=== PATIENT | male | born 1970 | race Two or more races ===

== ENCOUNTER 2022-03-07 16:02 | Emergency (ER) | payer OTHER ==
[~2022-03-07] VITALS: Ht 175.3 cm; Wt 95.0 kg
[2022-03-07] MEDS ORDERED: AMOX500T3 PO ×2 (17:29→18:17)
[2022-03-07] MEDS ORDERED: MOME1SPR2 ×2 (17:29→18:17)
[2022-03-07 17:48] VITALS: BP 115/70
== END 2022-03-07 17:50 | disposition home or self-care (01) ==
LOC: ER 16:02
DX: J01.20 Acute ethmoidal sinusitis, unspecified (principal); I10 Essential (primary) hypertension; E11.9 Type 2 diabetes mellitus without complications
CPT/HCPCS: 70450

== ENCOUNTER 2022-11-01 11:14 | Emergency (ER) | payer MEDICAID, OTHER ==
[~2022-11-01] VITALS: Ht 175.3 cm; Wt 90.9 kg
[2022-11-01 11:14] VITALS: BP 130/73; RESP 18; O2SAT 97
[~2022-11-01 11:14] MED LIST: AMOX500T3 PO; MOME1SPR3
[2022-11-01 11:32] VITALS: PULSE 88
== END 2022-11-01 13:43 | disposition left against medical advice (07) ==
LOC: ER 11:14
DX: R05.9 Cough, unspecified (principal); R07.89 Other chest pain; R06.02 Shortness of breath; Z53.21 Procedure and treatment not carried out due to patient leaving prior to being seen by health care provider
CPT/HCPCS: 93005

== ENCOUNTER 2022-12-26 14:09 | Emergency (ER) | payer OTHER, MEDICAID ==
[~2022-12-26] VITALS: Ht 175.3 cm; Wt 86.6 kg
[2022-12-26 14:20] VITALS: BP 101/62; RESP 18; O2SAT 100
[2022-12-26 14:26] VITALS: PULSE 125
[2022-12-26] MEDS ORDERED: ACETAMINOPHEN 500 MG TAB PO ONE (14:30)
[2022-12-26] MEDS ORDERED: ONDANSETRON ODT 4 MG TAB PO ONE (14:45)
[2022-12-26 15:17] LABS: Basophils # (auto) 0 10 ^3/uL (0-0.2); Basophils % (auto) 0.3 % (0.0-2.0); Eosinophils # (auto) 0 10 ^3/uL (0-0.8); Hematocrit 46.4 % (41.0-53.0); Red Cell Distribution Width 13.8 % (11.8-14.3)
[2022-12-26 15:19] LABS: Hemoglobin 15.9 g/dL (13.5-17.5); Lymphocytes # (auto) 0.7 10 ^3/uL (0.4-5.4); Lymphocytes % (auto) 7.9 % (10.0-50.0); Mean Corpuscular Hemoglobin 26.8 pg (28.0-32.0); Mean Corpuscular Hgb Conc. 34.3 g/dL (32.0-36.0); Mean Corpuscular Volume 78.2 fL (80.0-100.0); Monocytes % (auto) 11.6 % (0.0-12.0); Neutrophils # (auto) 7.3 10 ^3/uL (1.6-8.6); Neutrophils % (auto) 80.2 % (37.0-80.0); Nucleated Red Blood Cells % 0.3 %; Red Blood Cells 5.94 10^6/uL (4.5-5.90)
[2022-12-26 15:27] LABS: COVID19 ANTIGEN SOFIA FIA NEGATIVE (NEGATIVE); Rapid Influenza A Negative (Negative); Rapid Influenza B Negative (Negative)
[2022-12-26 15:36] LABS: Alanine Aminotransferase 16 U/L (7-40); Albumin 4.3 g/dL (3.2-4.8); Alkaline Phosphatase 116 U/L (46-116); Anion Gap 7 (5-15); Aspartate Aminotransferase 18 U/L (13-40); BUN/Creatinine Ratio 16.2 (10.0-20.0); Blood Urea Nitrogen 16 mg/dL (9-23); Calcium 8.9 mg/dL (8.7-10.4); Carbon Dioxide 26 mmol/L (20-30); Chloride 98 mmol/L (98-107); Glucose 176 mg/dL (74-106); Lipase 40 U/L (12-53); Potassium 3.7 mmol/L (3.5-5.1); Sodium 131 mmol/L (136-145)
[2022-12-26 15:37] LABS: Bilirubin, Total 0.6 mg/dL (0.2-1.0); Total Protein 7.6 g/dL (5.7-8.2)
[2022-12-26 15:49] VITALS: TEMP 100.8
[2022-12-26] MEDS ORDERED: SODIUM CHLORIDE 0.9% 1,000 ML IV ONE (16:15)
[2022-12-27] MEDS ORDERED: DIPH2.5T73 PO (11:05)
== END 2022-12-26 18:16 | disposition left against medical advice (07) ==
LOC: ER 14:09
DX: B34.8 Other viral infections of unspecified site (principal); E11.9 Type 2 diabetes mellitus without complications; I10 Essential (primary) hypertension; Z20.822 Contact with and (suspected) exposure to COVID-19
CPT/HCPCS: 36415; 71045; 80053; 82962; 83690; 83880; 84484; 85025; 87426; 87804; 93005; 99285; Q0162

== ENCOUNTER 2022-12-27 09:29 | Emergency (ER) | payer OTHER, MEDICAID ==
[~2022-12-27] VITALS: Ht 175.3 cm; Wt 92.0 kg
[2022-12-27 09:55] LABS: Basophils # (auto) 0 10 ^3/uL (0-0.2); Basophils % (auto) 0.4 % (0.0-2.0); Eosinophils # (auto) 0 10 ^3/uL (0-0.8); Eosinophils % (auto) 0.1 % (0.0-7.0); Hematocrit 47.8 % (41.0-53.0); Hemoglobin 16.1 g/dL (13.5-17.5); Lymphocytes # (auto) 1.2 10 ^3/uL (0.4-5.4); Lymphocytes % (auto) 17.5 % (10.0-50.0); Mean Corpuscular Hemoglobin 26.5 pg (28.0-32.0); Mean Corpuscular Hgb Conc. 33.7 g/dL (32.0-36.0); Mean Corpuscular Volume 78.8 fL (80.0-100.0); Monocytes % (auto) 15.2 % (0.0-12.0); Neutrophils # (auto) 4.6 10 ^3/uL (1.6-8.6); Neutrophils % (auto) 66.8 % (37.0-80.0); Nucleated Red Blood Cells % 0.2 %; Red Blood Cells 6.07 10^6/uL (4.5-5.90); Red Cell Distribution Width 13.7 % (11.8-14.3); White Blood Cell 6.9 10^3/uL (4.4-10.8)
[2022-12-27 10:14] LABS: Alanine Aminotransferase 23 U/L (7-40); Alkaline Phosphatase 104 U/L (46-116); Anion Gap 5 (5-15); Aspartate Aminotransferase 19 U/L (13-40); Bilirubin, Total 0.5 mg/dL (0.2-1.0); Blood Urea Nitrogen 22 mg/dL (9-23); Calcium 9.2 mg/dL (8.5-10.1); Carbon Dioxide 30 mmol/L (20-30); Chloride 99 mmol/L (98-107); Glucose 191 mg/dL (74-106); Potassium 4.2 mmol/L (3.5-5.1); Sodium 134 mmol/L (136-145)
[2022-12-27 10:45] LABS: INR 1.14 (0.9-1.15); Partial Thromboplastin Time 33.7 SEC (24.5-34.5); Prothrombin Time 11.9 sec (9.3-11.8)
[2022-12-27] MEDS ORDERED: DIPH2.5T73 PO (11:05)
[2022-12-27 11:24] VITALS: BP 110/76; PULSE 97; RESP 16; TEMP 98.9; O2SAT 98
== END 2022-12-27 11:26 | disposition home or self-care (01) ==
LOC: ER 09:29
DX: A05.9 Bacterial foodborne intoxication, unspecified (principal); R19.7 Diarrhea, unspecified; I10 Essential (primary) hypertension; E11.9 Type 2 diabetes mellitus without complications; Z98.890 Other specified postprocedural states; Z79.899 Other long term (current) drug therapy
CPT/HCPCS: 36415; 71045; 74176; 80053; 84484; 85025; 85610; 85730; 93005

== ENCOUNTER 2023-02-26 14:26 | Emergency (ER) | payer OTHER, MEDICAID ==
[~2023-02-26] VITALS: Ht 175.3 cm; Wt 87.1 kg
[~2023-02-26 14:26] MED LIST changes: +DIPH2.5T73 PO
[2023-02-26] MEDS ORDERED: HYDROcodone-ACET 5/325MG TAB PO ONE (14:45)
[2023-02-26 15:21] LABS: Lymphocytes # (auto) 1.8 10 ^3/uL (0.4-5.4); Mean Corpuscular Hemoglobin 26.3 pg (28.0-32.0); Monocytes # (auto) 0.5 10 ^3/uL (0-1.3)
[2023-02-26 15:23] LABS: Basophils # (auto) 0 10 ^3/uL (0-0.2); Basophils % (auto) 0.5 % (0.0-2.0); Eosinophils # (auto) 0 10 ^3/uL (0-0.8); Eosinophils % (auto) 0.6 % (0.0-7.0); Hematocrit 43.3 % (41.0-53.0); Hemoglobin 14.2 g/dL (13.5-17.5); Lymphocytes % (auto) 21.9 % (10.0-50.0); Mean Corpuscular Hgb Conc. 32.9 g/dL (32.0-36.0); Mean Corpuscular Volume 79.9 fL (80.0-100.0); Monocytes % (auto) 6.3 % (0.0-12.0); Neutrophils # (auto) 5.9 10 ^3/uL (1.6-8.6); Neutrophils % (auto) 70.7 % (37.0-80.0); Red Blood Cells 5.42 10^6/uL (4.5-5.90); Red Cell Distribution Width 13.3 % (11.8-14.3); White Blood Cell 8.3 10^3/uL (4.4-10.8)
[2023-02-26 15:38] LABS: Alanine Aminotransferase 21 U/L (7-40); Albumin 3.9 g/dL (3.2-4.8); Alkaline Phosphatase 139 U/L (46-116); Anion Gap 5 (5-15); Aspartate Aminotransferase 14 U/L (13-40); Blood Urea Nitrogen 18 mg/dL (9-23); Calcium 8.9 mg/dL (8.7-10.4); Carbon Dioxide 28 mmol/L (20-30); Chloride 101 mmol/L (98-107); Glucose 399 mg/dL (74-106); Lipase 36 U/L (12-53); Potassium 4.3 mmol/L (3.5-5.1); Sodium 134 mmol/L (136-145)
[2023-02-26 15:39] LABS: Bilirubin, Total 0.3 mg/dL (0.2-1.0)
[2023-02-26] MEDS ORDERED: INSULIN LISPRO (HUMAN) 100 UNITS/ML ML SC ONE ×2 (16:00→18:15)
[2023-02-26] MEDS: SODIUM CHLORIDE 0.9% 1,000 ML IV ONE ×2 (16:11→16:27)
[2023-02-26 16:44] LABS: Urine Epithelial Cast None Seen /hpf (<5)
[2023-02-26 16:56] LABS: Urine Bacteria NONE SEEN /hpf (None Seen); Urine Blood Negative /uL (Negative); Urine Clarity Clear (Clear); Urine Color Colorless (Yellow); Urine Mucus FEW (None Seen); Urine Protein, UAD Negative (Negative); Urine Specific Gravity 1.035 (1.001-1.035); Urine Urobilinogen Normal (Negative); Urine WBC <1 /hpf (0 - 3); Urine pH 5.5 (5.0-8.0)
[2023-02-26] MEDS ORDERED: CEPH500C PO (18:46)
[2023-02-26] MEDS ORDERED: ACE3T PO (18:46)
[2023-02-26 20:04] VITALS: BP 134/84; PULSE 98; RESP 19; TEMP 98; O2SAT 98
== END 2023-02-26 20:06 | disposition home or self-care (01) ==
LOC: ER 14:26
DX: E11.65 Type 2 diabetes mellitus with hyperglycemia (principal); L08.89 Other specified local infections of the skin and subcutaneous tissue; I10 Essential (primary) hypertension
CPT/HCPCS: 36415; 71045; 80053; 81001; 82962; 83605; 83690; 83880; 85025; 93005; 96360; 96361; 96372; 99285; J1815; J7030

== ENCOUNTER 2023-07-04 15:27 | Emergency (ER) | payer OTHER, MEDICAID ==
[~2023-07-04] VITALS: Ht 175.3 cm; Wt 85.3 kg
[2023-07-04 15:27] VITALS: BP 120/74; PULSE 96; RESP 16; O2SAT 98
[~2023-07-04 15:27] MED LIST changes: +ACE3T PO; +CEPH500C PO
== END 2023-07-04 19:35 | disposition left against medical advice (07) ==
LOC: ER 15:27
DX: R19.7 Diarrhea, unspecified (principal); Z53.21 Procedure and treatment not carried out due to patient leaving prior to being seen by health care provider

== ENCOUNTER 2023-09-14 04:56 | Inpatient (IN) | payer OTHER, MEDICAID ==
[~2023-09-14] VITALS: Ht 175.3 cm; Wt 90.5 kg
[2023-09-14 07:32] LABS: Basophils # (auto) 0 10 ^3/uL (0-0.2); Basophils % (auto) 0.4 % (0.0-2.0); Eosinophils # (auto) 0 10 ^3/uL (0-0.8); Eosinophils % (auto) 0.4 % (0.0-7.0); Hematocrit 44.8 % (41.0-53.0); Hemoglobin 15.1 g/dL (13.5-17.5); Lymphocytes # (auto) 2.1 10 ^3/uL (0.4-5.4); Lymphocytes % (auto) 18.4 % (10.0-50.0); Mean Corpuscular Hgb Conc. 33.7 g/dL (32.0-36.0); Mean Corpuscular Volume 80.1 fL (80.0-100.0); Monocytes # (auto) 0.7 10 ^3/uL (0-1.3); Monocytes % (auto) 6.3 % (0.0-12.0); Neutrophils # (auto) 8.5 10 ^3/uL (1.6-8.6); Neutrophils % (auto) 74.5 % (37.0-80.0); Nucleated Red Blood Cells % 0.1 %; Red Blood Cells 5.59 10^6/uL (4.5-5.90); Red Cell Distribution Width 13.6 % (11.8-14.3); White Blood Cell 11.5 10^3/uL (4.4-10.8)
[2023-09-14 07:39] LABS: Chloride 102 mmol/L (98-107); Potassium 4.1 mmol/L (3.5-5.1); Sodium 135 mmol/L (136-145)
[2023-09-14 07:40] LABS: Anion Gap 8 (5-15); Calcium 9.9 mg/dL (8.7-10.4); Carbon Dioxide 25 mmol/L (20-30)
[2023-09-14 07:45] LABS: Blood Urea Nitrogen 17 mg/dL (9-23); Glucose 197 mg/dL (74-106)
[2023-09-14 08:39] LABS: Urine Bacteria FEW /hpf (None Seen); Urine Blood Negative /uL (Negative); Urine Clarity Clear (Clear); Urine Color Light-Yellow (Yellow); Urine Mucus FEW (None Seen); Urine Protein, UAD Negative (Negative); Urine Specific Gravity 1.031 (1.001-1.035); Urine Urobilinogen Normal (Negative); Urine WBC <1 /hpf (0 - 3)
[2023-09-14] MEDS: ONDANSETRON HCL 4 MG/2 ML VIAL IV ONE (08:48)
[2023-09-14] MEDS: MORPHINE SULFATE 4 MG/ML SYR/VIAL IV ONE (08:48)
[2023-09-14] MEDS ORDERED: ONDANSETRON HCL 4 MG/2 ML VIAL IV PRN (09:45)
[2023-09-14] MEDS ORDERED: NITROGLYCERIN 0.4 MG SL TAB SL PRN (09:45)
[2023-09-14] MEDS: PIPERACILLIN-TAZOB 3.375GM 100 ML IV ONE (10:09)
[2023-09-14] MEDS: SODIUM CHLORIDE 0.9% 1,000 ML IV SCH (10:09)
[2023-09-14] MEDS ORDERED: PIPERACILLIN-TAZOB 3.375GM 100 ML IV SCH (12:00)
[2023-09-14 12:43] VITALS: BP 125/83; PULSE 93; RESP 19; TEMP 98.4; O2SAT 96
[2023-09-14 15:37] VITALS: BP 125/83; PULSE 93; RESP 18; TEMP 98.4; O2SAT 96
[2023-09-14 15:48] VITALS: PULSE 93; RESP 19; O2SAT 96
[2023-09-14 16:35] VITALS: BP 137/80; PULSE 74; RESP 19; TEMP 98.8; O2SAT 98
[2023-09-14] MEDS: PANTOPRAZOLE 40 MG/10 ML VIAL INJ IV ONE (17:08)
[2023-09-14] MEDS: PIPERACILLIN-TAZOB 3.375GM 100 ML IV SCH (17:08)
[2023-09-14] MEDS: BISACODYL 10 MG RECT SUPP PR ONE (17:09)
[2023-09-14 20:00] VITALS: PULSE 98; RESP 18; O2SAT 96
[2023-09-14 21:00] VITALS: BP 115/61; PULSE 77; RESP 18; TEMP 98.9; O2SAT 96
[2023-09-15] VITALS (7 sets, daily range): BP systolic 107–150; BP diastolic 55–86; PULSE 75–93; RESP 18–20; TEMP 97.1–98.9; O2SAT 94–98
[2023-09-15] MEDS: MORPHINE SULFATE INJ 2 MG/ml SYRG IV PRN (04:55)
[2023-09-15] MEDS: BISACODYL 10 MG RECT SUPP PR PRN (04:59)
[2023-09-15 06:41] LABS: Basophils # (auto) 0 10 ^3/uL (0-0.2); Basophils % (auto) 0.7 % (0.0-2.0); Eosinophils # (auto) 0 10 ^3/uL (0-0.8); Eosinophils % (auto) 0.5 % (0.0-7.0); Hematocrit 43.5 % (41.0-53.0); Hemoglobin 14.7 g/dL (13.5-17.5); Lymphocytes # (auto) 1.8 10 ^3/uL (0.4-5.4); Lymphocytes % (auto) 26.6 % (10.0-50.0); Mean Corpuscular Hgb Conc. 33.8 g/dL (32.0-36.0); Mean Corpuscular Volume 79.9 fL (80.0-100.0); Monocytes # (auto) 0.5 10 ^3/uL (0-1.3); Monocytes % (auto) 7.5 % (0.0-12.0); Neutrophils # (auto) 4.3 10 ^3/uL (1.6-8.6); Neutrophils % (auto) 64.7 % (37.0-80.0); Nucleated Red Blood Cells % 0.1 %; Red Blood Cells 5.44 10^6/uL (4.5-5.90); Red Cell Distribution Width 13.9 % (11.8-14.3); White Blood Cell 6.7 10^3/uL (4.4-10.8)
[2023-09-15 06:50] LABS: Alanine Aminotransferase 21 U/L (7-40); Albumin 3.6 g/dL (3.2-4.8); Alkaline Phosphatase 88 U/L (46-116); Anion Gap 5 (5-15); Aspartate Aminotransferase 12 U/L (13-40); BUN/Creatinine Ratio 19.2 (10.0-20.0); Blood Urea Nitrogen 14 mg/dL (9-23); Calcium 8.9 mg/dL (8.7-10.4); Carbon Dioxide 28 mmol/L (20-30); Chloride 104 mmol/L (98-107); Glucose 179 mg/dL (74-106); Potassium 3.9 mmol/L (3.5-5.1); Sodium 137 mmol/L (136-145)
[2023-09-15 06:51] LABS: Bilirubin, Total 0.6 mg/dL (0.2-1.0); Total Protein 6.8 g/dL (5.7-8.2)
[2023-09-15] MEDS: PANTOPRAZOLE 40 MG/10 ML VIAL INJ IV SCH (10:37)
[2023-09-15] MEDS: DOCUSATE SOD 100 MG CAP PO PRN (10:37)
[2023-09-15] MEDS ORDERED: DEXTROSE (50%) 50ML SYRG IV PRN (14:15)
[2023-09-15] MEDS: POLYETHYLENE GLYCOL 17 GM PWDR PO ONE (14:56)
[2023-09-15] MEDS: METOCLOPRAMIDE HCL 5MG/ml INJ 2ml VIAL IV ONE (14:56)
[2023-09-15] MEDS: LACTULOSE 20Gm/30ML SOLN PO SCH (18:21)
[2023-09-15] MEDS: FLEET ENEMA(ADULT) 135 ML PR ONE (18:22)
[2023-09-15] MEDS: ACCU-CHEK COMFORT CURVE STRIP VI SCH (18:22)
[2023-09-15] MEDS: InsuLIN REG 1unit/0.01ml Soln (100units/ml) SC SCH (18:26)
[2023-09-16 05:00] VITALS: BP 112/61; PULSE 85; RESP 20; TEMP 97.7; O2SAT 96
[2023-09-16 08:00] VITALS: PULSE 97; RESP 18; O2SAT 97
[2023-09-16 08:55] VITALS: BP 104/62; PULSE 97; RESP 17; TEMP 98.1; O2SAT 97
[2023-09-16] MEDS ORDERED: DOCU-94 PO (11:07)
[2023-09-16 11:39] VITALS: TEMP 36.7
== END 2023-09-16 12:18 | disposition home or self-care (01) | DRG 392 ==
LOC: ER 04:56 → OVERFLOW 09:44 → WEST WING 11:25
PROVIDERS: ADMIT Nurse Practitioner Family; ATTEND Nurse Practitioner Acute Care
DX: K59.00 Constipation, unspecified (principal); K40.90 Unilateral inguinal hernia, without obstruction or gangrene, not specified as recurrent; E86.0 Dehydration; E11.40 Type 2 diabetes mellitus with diabetic neuropathy, unspecified; K52.9 Noninfective gastroenteritis and colitis, unspecified; I10 Essential (primary) hypertension; E78.5 Hyperlipidemia, unspecified; E11.21 Type 2 diabetes mellitus with diabetic nephropathy; Z90.49 Acquired absence of other specified parts of digestive tract; Z79.4 Long term (current) use of insulin; Z79.899 Other long term (current) drug therapy
CPT/HCPCS: 36415; 74176; 74250; 80048; 80053; 81001; 82962; 83036; 85025; 96365; 96375; G0378; J1815; J2405; J2470; J2543

== ENCOUNTER 2024-02-20 10:36 | Inpatient (IN) | payer OTHER, MEDICARE ==
[~2024-02-20] VITALS: Ht 172.7 cm; Wt 73.0 kg
[~2024-02-20 10:36] MED LIST changes: +DOCU-94 PO
--- NOTE | 2024-02-20 10:55 | ED.PDOC ---
History of Present Illness HPI Comments 53-year-old male brought by paramedics because of a fall this morning. He was trying to break up a fight between his two dogs when the dogs jumped on. He tried to catch his fall by extending his left arm causing deformity of the left upper arm. He does have bruising of his bilateral knees with no deformity. History of diabetes with blood sugar being 460. Denies chest pain nausea vomiting. Denies any other symptoms other than extremity pain. Chief Complaint: Upper Extremity Time Seen by MD: 10:48 [facility] Reviewed Notes: Nurses Notes, Medications, Allergies Allergies: Coded Allergies: No Known Drug Allergy (Verified Allergy, Unknown, 03/07/22) Home Meds Active Scripts Docusate Sodium (Colace) 100 Mg Cap, 1 CAP PO BID, #30 CAP Prov:MARY SANCHEZ FAMILY SUPPORT SPECIALIST 09/16/23 Acetaminophen W/ Codeine (Tylenol W/Cod #3) 1 Tab Tb, 1 TAB PO Q8HP PRN, #20 TAB Prov:DONNA PURVIS PAC 02/26/23 Cephalexin Monohydrate (Cephalexin) 500 Mg Cap, 1 CAP PO QID for 10 Days, #40 CAP Prov:DONNA PURVIS PAC 02/26/23 Diphenoxylate W/ Atropine (Lomotil) 2.5 Mg Tab, 1 TAB PO QID, #20 TAB Prov:ANASTACIA VENTURA MD 12/27/22 Amoxicillin Trihydrate (Amoxicillin) 500 Mg Tab, 1 TAB PO TID, #30 TAB Prov:SAURAV HICKS FAMILY SUPPORT SPECIALIST 03/07/22 Mometasone Furoate (Nasal) (Mometasone Furoate) 50 Mcg/Act Spr, 50 MCG NA DAILY for 14 Days, #1 SPRAY Prov:SAURAV HICKS FAMILY SUPPORT SPECIALIST 03/07/22 Information Source: Patient, Emergency Med Personnel Mode of Arrival: EMS Severity: Moderate Timing: Hours Duration: Since onset Past Medical History PAST MEDICAL HISTORY: DM, High Lipids Surgical History: Appendectomy Family History Family History: No family hx of HTN, No family hx ofKidney zoila, No family hx of Liver zoila, Family hx of Cancer Social History Smoker: Non-Smoker Alcohol: Denies ETOH Use Drugs: Denies Drug Use Lives In: Home Constitutional: denies: chills, diaphoresis, fatigue, fever, malaise, sweats, weakness, others EENTM: denies: blurred vision, double vision, ear bleeding, ear discharge, ear drainage, ear pain, ear ringing, eye pain, eye redness, hearing loss, mouth pain, mouth swelling, nasal discharge, nose bleeding, nose congestion, nose pain, photophobia, tearing, throat pain, throat swelling, voice changes, others Respiratory: denies: cough, hemoptysis, orthopnea, SOB at rest, shortness of breath, SOB with excertion, stridor, wheezing, others Cardiovascular: denies: chest pain, dizzy spells, diaphoresis, Dyspnea on exertion, edema, irregular heart beat, left arm pain, lightheadedness, palpitations, PND, syncope, others Gastrointestinal: denies: abdomen distended, abdominal pain, blood streaked bowels, constipated, diarrhea, dysphagia, difficulty swallowing, hematemesis, melena, nausea, poor appetite, poor fluid intake, rectal bleeding, rectal pain, vomiting, others Genitourinary: denies: burning, dysuria, flank pain, frequency, hematuria, incontinence, penile discharge, penile sore, pain, testicle pain, testicle swelling, urgency, others Neurological: denies: dizziness, fainting, headache, left sided numbness, left sided weakness, numbness, paresthesia, pre-existing deficit, right sided numbness, right sided weakness, seizure, speech problems, tingling, tremors, weakness, others Musculoskeletal: reports: joint pain; denies: back pain, gout, joint swelling, muscle pain, muscle stiffness, neck pain, others Integumetry: denies: bruises, change in color, change in hair/nails, dryness, laceration, lesions, lumps, rash, wounds, others Allergic/Immunocompromised: denies: Difficulty Healing, Frequent Infections, Hives, Itching, others Hematologic/Lymphatic: denies: anemia, blood clots, easy bleeding, easy bruising, swollen glands, others Endocrine: denies: excessive hunger, excessive sweating, excessive thirst, excessive urination, flushing, intolerance to cold, intolerance to heat, unexplained weight gain, unexplained weight loss, others Psychiatric: denies: anxiety, bipolar disorder, depression, hopeless, panic disorder, schizophrenia, sleepless, suicidal, others Physical Exam General Appearance: Moderate Distress HEENT: Normal ENT Inspection, Pharynx Normal, TMs Normal Neck: Full Range of Motion, Non-Tender, Normal, Normal Inspection Respiratory: Chest Non-Tender, Lungs Clear, No Accessory Muscle Use, No Respiratory Distress, Normal Breath Sounds Cardiovascular: No Edema, No JVD, No Murmur, No Gallop, Normal Peripheral Pulses, Regular Rate/Rhythm Breast Exam: Deferred Gastrointestinal: No Organomegaly, Non Tender, No Pulsatile Mass, Normal Bowel Sounds, Soft Genitalia: Deferred Pelvic: Deferred Rectal: Deferred Extremities: Decreased range of motion (Left upper extremity) Musculoskeletal : Apperance: Normal Neurologic: Alert, brush polisher II-XII nml as Tested, No Motor Deficits, Normal Affect, Normal Mood, No Sensory Deficits Cerebellar Function: Normal Reflexes: Normal Skin: Bruises (Bilateral knee) Peripheral Pulses: 3+ Radial (R), 3+ Radial (L) Lymphatic: No Adenopathy Was a procedure done? Was a procedure done?: No Differential Dx Considerations may include: Fracture Hyperglycemia X-Ray, Labs, Meds, VS Vital Signs Date Time Temp Pulse Resp B/P (MAP) Pulse Ox O2 Delivery O2 Flow Rate FiO2 02/20/24 10:38 97.5 88 20 150/100 (117) 98 Patient alert. Complaining of pain. Blood pressure elevated. Blood sugar elevated. Blood pressure possibly from pain. Establish intravenous access. Was given fluids. Was given morphine. Was given Zofran. Deformity of the left upper extremity with good pulses. Was given insulin. Reviewed his previous visit. Explained to the patient. Continue cardiac monitoring. Time of 1ST Reevaluation: 10:52 Reevaluation 1ST: Unchanged Patient Education/Counseling: Diagnosis, Treatment, Prognosis Family Education/Counseling: No Family Present Departure 1 Departure Time of Disposition: 10:53 Impression: Primary Impression: Humerus fracture Qualified Codes: S42.202A - Unspecified fracture of upper end of left humerus, initial encounter for closed fracture Additional Impression: Uncontrolled diabetes mellitus Qualified Codes: E13.65 - Other specified diabetes mellitus with hyperglycemia Disposition: ADMITTED INPATIENT Admit to: Med Surg Condition: Guarded Critical Care Note Critical Care Time?: Yes (45 min-critical care time only) Stability Stability form required: No Heart Score Heart Score: Heart Score Response (Comments) Value History N/A 0 EKG N/A 0 Age N/A 0 Risk Factors N/A 0 Troponin N/A 0 Total 0 KERLINE ARCHER MD Feb 20, 2024 10:55
--- NOTE | 2024-02-20 11:42 | DVH ---
XY L HUMERUS XRAY INDICATION: fall TECHNICAL DATA: Frontal and lateral views were obtained of the left humerus. COMPARISON: None FINDINGS: There is acute fracture of the proximal humeral head and diaphysis. Soft tissues are normal. IMPRESSION: 1. Acute fracture of the proximal humerus.
[2024-02-20 11:48] LABS: Basophils # (auto) 0.1 10 ^3/uL (0-0.2); Basophils % (auto) 0.7 % (0.0-2.0); Chloride 102 mmol/L (98-107); Eosinophils # (auto) 0.1 10 ^3/uL (0-0.8); Eosinophils % (auto) 0.8 % (0.0-7.0); Mean Corpuscular Volume 79.6 fL (80.0-100.0); Nucleated Red Blood Cells % 0.1 %; Potassium 3.7 mmol/L (3.5-5.1); Sodium 136 mmol/L (136-145)
[2024-02-20 11:49] LABS: Anion Gap 7 (5-15); Calcium 9.8 mg/dL (8.7-10.4); Carbon Dioxide 27 mmol/L (20-31)
[2024-02-20 11:53] LABS: Hematocrit 44.3 % (41.0-53.0); Hemoglobin 15.1 g/dL (13.5-17.5); Lymphocytes # (auto) 2.5 10 ^3/uL (0.4-5.4); Lymphocytes % (auto) 25.5 % (10.0-50.0); Mean Corpuscular Hemoglobin 27.1 pg (28.0-32.0); Monocytes # (auto) 0.6 10 ^3/uL (0-1.3); Monocytes % (auto) 6.1 % (0.0-12.0); Neutrophils # (auto) 6.6 10 ^3/uL (1.6-8.6); Neutrophils % (auto) 66.9 % (37.0-80.0); Platelet Count (auto) 262 10^3/uL (140-450); Red Blood Cells 5.57 10^6/uL (4.5-5.90); Red Cell Distribution Width 13.4 % (11.8-14.3); White Blood Cell 9.9 10^3/uL (4.4-10.8)
[2024-02-20 11:54] LABS: BUN/Creatinine Ratio 20.3 (10.0-20.0); Blood Urea Nitrogen 16 mg/dL (9-23)
[2024-02-20 12:04] LABS: Glucose 358 mg/dL (74-106)
[2024-02-20] MEDS: MORPHINE SULFATE 4 MG/ML SYR/VIAL IV ONE (13:45)
[2024-02-20] MEDS: SODIUM CHLORIDE 0.9% 1,000 ML IV ONE (13:46)
[2024-02-20] MEDS: ONDANSETRON HCL 4 MG/2 ML VIAL IV ONE (13:46)
[2024-02-20 14:34] VITALS: TEMP 98.2
[2024-02-20] MEDS ORDERED: ONDANSETRON HCL 4 MG/2 ML VIAL IV PRN (15:00)
[2024-02-20] MEDS ORDERED: DEXTROSE (50%) 50ML SYRG IV PRN (15:00)
[2024-02-20] MEDS ORDERED: DOCUSATE SOD 100 MG CAP PO PRN (15:00)
[2024-02-20] MEDS ORDERED: MORPHINE SULFATE INJ 2 MG/ml SYRG IV PRN ×2 (15:00→16:45)
[2024-02-20] MEDS ORDERED: ACETAMINOPHEN 325 MG TAB PO PRN (15:00)
[2024-02-20] MEDS: ACCU-CHEK COMFORT CURVE STRIP VI SCH (16:25)
[2024-02-20] MEDS: HYDROcodone-ACET 5/325MG TAB PO PRN (16:25)
[2024-02-20] MEDS: SODIUM CHLORIDE 0.9% 1,000 ML IV SCH (16:25)
[2024-02-20] MEDS: InsuLIN REG 1unit/0.01ml Soln (100units/ml) IV ONE (16:26)
[2024-02-20] MEDS: InsuLIN REG 1unit/0.01ml Soln (100units/ml) SC SCH (16:26)
--- NOTE | 2024-02-20 16:36 | DVHHP2 ---
History of Present Illness Reason for Visit: Humerus fracture, left History of Present Illness The patient is a 53-year-old male with past medical history of diabetes mellitus and hyperlipidemia who presented to [facility] ED evaluation of left shoulder pain. Patient reports he was trying to break up a fight between his 2 dogs when the dog jumped on him and fell extending his left arm causing deformity of the left upper arm. Patient was noted multiple bruises of his bilateral knee with no deformity. Patient was seen and evaluated in the ED, laboratory data shows WBC 9.9, platelets 262, sodium 136, potassium 3.7, BUN 16, creatinine 0.79, GFR 105, glucose 358, blood pressure 118/68, pulse 89, temperature 98.2 F, O2 saturation 97% room air. Left humerus x-ray revealing acute fracture of the proximal humerus. Please see medication orders section in the computer. On my assessment, patient denied chest pain, no headache, no dizziness, abdominal pain, no nausea, no vomiting, no fever, no chills. Patient was admitted for further evaluation and medical management. Past Medical History DM, High Lipids Past Surgical History Appendectomy Family History Reviewed, noncontributory to the management of this case. Past Social History The patient lives at home, denies smoking, alcohol or illicit drugs abuse. Review of Systems Constitutional: No: Fever, Chills, Sweats, Weakness, Malaise, Other Eyes: No: Pain, Vision change, Conjunctivae inflammation, Eyelid inflammation, Other, Redness ENT: No: Ear pain, Ear discharge, Nose pain, Nose discharge, Nose congestion, Mouth pain, Mouth swelling, Throat pain, Throat swelling, Other Respiratory: No: Cough, Dry, Shortness of breath, SOB with excertion, Wheezing, Hemoptysis, Pleuritic Pain, Sputum, Wheezing, Other Cardiovascular: No: Chest Pain, Palpitations, Orthopnea, Paroxysmal Noc. Dyspnea, Edema, Lt Headedness, Other Genitourinary: No Dysuria, No Frequency, No Incontinence, No Hematuria, No Retention, No Other Musculoskeletal: other (Joint pain, left), shoulder pain (Left); No: neck pain, arm pain, back pain, hand pain, leg pain, foot pain Skin: Bruising (Bilateral knee); No: Rash, Lesions, Jaundice, Other Neurological: No: Weakness, Numbness, Incoordination, Change in speech, Confusion, Seizures, Other Allergies: Coded Allergies: No Known Drug Allergy (Verified Allergy, Unknown, 03/07/22) Medications Current Medications Medications Dose Ordered Sig/Erin Route Start Time Stop Time Status Last Admin Dose Admin Diagnostic Test (Pha) 1 strip IQ4HR 02/20/24 16:00 02/20/24 16:25 1 STRIP Insulin Human Regular IQ4HR SC 02/20/24 16:00 02/20/24 16:26 9 UNITS Dextrose 50 ml UD PRN IV 02/20/24 15:00 Sodium Chloride 1,000 ml @ 60 mls/hr [id number] IV 02/20/24 15:00 02/20/24 16:25 60 MLS/HR Acetaminophen/ Hydrocodone Bitart 1 tab Q4HP PRN PO 02/20/24 15:00 02/20/24 16:25 1 TAB Ondansetron HCl 4 mg Q4HP PRN IV 02/20/24 15:00 Docusate Sodium 100 mg BIDPRN PRN PO 02/20/24 15:00 Enoxaparin Sodium 40 mg DAILY SC 02/21/24 10:00 Acetaminophen 650 mg Q6HP PRN PO 02/20/24 15:00 Morphine Sulfate 2 mg Q4HPRN PRN IV 02/20/24 15:00 Exam Vital Signs Vital Signs Date Time Temp Pulse Resp B/P (MAP) Pulse Ox O2 Delivery O2 Flow Rate FiO2 02/20/24 14:34 98.2 89 17 117/68 (84) 96 98.2 General Appearance: Alert, Oriented X3, Cooperative, No acute distress HEENT: Atraumatic, PERRLA, EOMI, Mucous membr. moist/pink Respiratory: Clear to auscultation, Normal air movement Cardiovascular: Regular rate, Normal S1, Normal S2, No murmurs Abdominal: Normal bowel sounds, Soft, No tenderness, No hepatospenomegaly, No masses Extremities: No clubbing, No cyanosis, No edema, Normal pulses, No tenderness/swelling Skin: No rashes, No breakdown, No significant lesion Neuro: Normal gait, Normal speech, Strength at 5/5 X4 ext, Normal tone, Sensation intact, Cranial nerves 3-12 NL, Reflexes 2+ Psych/Mental Status: Mental status NL, Mood NL Labs/Xrays Labs Test 02/20/24 11:05 Range/Units White Blood Count 9.9 4.4-10.8 10^3/uL Red Blood Count 5.57 4.5-5.90 10^6/uL Hemoglobin 15.1 13.5-17.5 g/dL Hematocrit 44.3 41.0-53.0 % Mean Corpuscular Volume 79.6 L 80.0-100.0 fL Mean Corpuscular Hemoglobin 27.1 L 28.0-32.0 pg Mean Corpuscular Hemoglobin Concent 34.0 32.0-36.0 g/dL Red Cell Distribution Width 13.4 11.8-14.3 % Platelet Count 262 140-450 10^3/uL Mean Platelet Volume 9.4 6.9-10.8 fL Neutrophils (%) (Auto) 66.9 37.0-80.0 % Lymphocytes (%) (Auto) 25.5 10.0-50.0 % Monocytes (%) (Auto) 6.1 0.0-12.0 % Eosinophils (%) (Auto) 0.8 0.0-7.0 % Basophils (%) (Auto) 0.7 0.0-2.0 % Neutrophils # (Auto) 6.6 1.6-8.6 10 ^3/uL Lymphocytes # (Auto) 2.5 0.4-5.4 10 ^3/uL Monocytes # (Auto) 0.6 0-1.3 10 ^3/uL Eosinophils # (Auto) 0.1 0-0.8 10 ^3/uL Basophils # (Auto) 0.1 0-0.2 10 ^3/uL Nucleated Red Blood Cells 0.1 % Sodium Level 136 136-145 mmol/L Potassium Level 3.7 3.5-5.1 mmol/L Chloride Level 102 98-107 mmol/L Carbon Dioxide Level 27 20-31 mmol/L Anion Gap 7 5-15 Blood Urea Nitrogen 16 9-23 mg/dL Creatinine 0.79 0.700-1.30 mg/dL Glomerular Filtration Rate Calc 105 >90 mL/min BUN/Creatinine Ratio 20.3 H 10.0-20.0 Serum Glucose 358 H 74-106 mg/dL Calcium Level 9.8 8.7-10.4 mg/dL PATIENT: KASSY ELDER ACCT: [id number] UNIT: [id number] : 1970 LOC: ER ROOM / BED: / AGE / SEX: 53 / M ADM STATUS: REG ER SERVICE 1049 ORDERING PHYSICIAN: KERLINE ARCHER MD PROCEDURE(s): LHUM - L HUMERUS XRAY REASON: fall ORDER NUMBER(s): [id number], ACCESSION NUMBER(s): [id number] XY L HUMERUS XRAY INDICATION: fall TECHNICAL DATA: Frontal and lateral views were obtained of the left humerus. COMPARISON: None FINDINGS: There is acute fracture of the proximal humeral head and diaphysis. Soft tissues are normal. IMPRESSION: 1. Acute fracture of the proximal humerus. Assessment/Plan Assessment/Plan Humerus fracture Uncontrolled diabetes mellitus Unspecified fracture of upper end of left humerus, initial encounter for closed fracture Plan 1. Admit to telemetry unit 2. Breathing treatment 3. Pain control management 4. IV antibiotic management 5. Management of fluids and electrolytes 6. Consultation for orthopedic surgery 7. Diagnostic test left humerus x-ray 8. DVT prophylaxis-on Lovenox 9. Repeat labs CBC, CMP in a.m. 10. Home medication reviewed and reconciled 11. Continue with current medical management 12. Treatment plan discussed with patient and RN. Patient verbalized understanding. Plan discussed with: Patient, Other (RN) My Orders Orders - HUMBERTO NELSON DNP Procedure Category Date Status Time Consistent DIET 02/20/24 Transmitted Carb(Ccho)Diabetes Dinner * Orthopedic Consult CONS 02/20/24 Transmitted 14:50 PTPTT LAB 02/20/24 Logged 14:50 Glucose Blood PHA 02/20/24 In Process (Accu-Chek Comfort 16:00 Insulin R (Human) PHA 02/20/24 In Process (Insulin R) 16:00 Dextrose 50% Syringe PHA 02/20/24 In Process 15:00 Allergies MEHDI 02/20/24 In Process 14:50 Code Status CODE 02/20/24 Transmitted 14:50 Sodium Chloride 0.9% PHA 02/20/24 In Process 15:00 Oxygen Per Hour RT 02/20/24 Transmitted 14:50 Hydrocodone-Acet PHA 02/20/24 In Process 5/325mg Tab (Marland 15:00 Ondansetron Hcl PHA 02/20/24 In Process (Zofran) 15:00 Docusate Sodium PHA 02/20/24 In Process Capsule (Colace 15:00 Enoxaparin Sodium PHA 02/21/24 In Process (Lovenox) 10:00 Complete Blood Count LAB 02/21/24 Verified 04:00 Comprehensive LAB 02/21/24 Verified Metabolic Panel 04:00 Condition: Serious MEHDI 02/20/24 In Process 14:50 Acetaminophen Tablet PHA 02/20/24 In Process (Tylenol Tablet) 15:00 Bedrest With Bathroom MEHDI 02/20/24 In Process Privileg 14:[address]ulf[address] [facility] 02/20/24 In Process Injection 15:00 Sequential [facility] 02/20/24 In Process Compression Device Admit ADMIT 02/20/24 Verified 16:[address] [facility] 02/20/24 Verified Sublingual (Ntrostat 16:45 Morphine [address]ulf[address] [facility] 02/20/24 Verified Injection 16:45 Notify Of Changes [facility] 02/20/24 Verified From Base 16:34 Ovens Supervisor For [facility] 02/20/24 Verified 24 Hours 16:34 Emergency Dysrhythmia [facility] 02/20/24 Verified Protocol 16:34 Rhythm Strips Once [facility] 02/20/24 Verified Every Shift 16:34 Oxygen By Nasal RT 02/20/24 Verified Cannula 16:34 Problem List: (1) Humerus fracture (2) Uncontrolled diabetes mellitus (3) Unspecified fracture of upper end of left humerus, initial encounter for closed fracture Date of Service: Feb 20, 2024 Billing Provider: HUMBERTO NELSON DNP Common Visit Codes: [id number] INP/OBS CARE (HIGH) HUMBERTO NELSON DNP Feb 20, 2024 16:36
[2024-02-20 16:43] VITALS: O2SAT 100
[2024-02-20 16:44] VITALS: BP 122/76; PULSE 93; RESP 16
[2024-02-20] MEDS ORDERED: NITROGLYCERIN 0.4 MG SL TAB SL PRN (16:45)
[2024-02-20] MEDS: cefTRIAXone 1GM/50ML D5W 50 ML IV ONE (19:53)
[2024-02-21] MEDS ORDERED: cefTRIAXone 1GM/50ML D5W 50 ML IV SCH (09:00)
[2024-02-21] MEDS ORDERED: ENOXAPARIN SOD 40 MG/0.4 ML SYRINGE SC SCH (10:00)
== END 2024-02-20 19:53 | disposition left against medical advice (07) | DRG 563 ==
LOC: ER 10:36 → EDBD 10:36 → TELE 16:34
PROVIDERS: ADMIT Nurse Practitioner Family; ATTEND Nurse Practitioner Family
DX: S42.292A Other displaced fracture of upper end of left humerus, initial encounter for closed fracture (principal); M21.922 Unspecified acquired deformity of left upper arm; E11.9 Type 2 diabetes mellitus without complications; Z53.29 Procedure and treatment not carried out because of patient's decision for other reasons; E78.5 Hyperlipidemia, unspecified; S80.01XA Contusion of right knee, initial encounter; S80.02XA Contusion of left knee, initial encounter; Z79.899 Other long term (current) drug therapy; Z79.4 Long term (current) use of insulin; W54.1XXA Struck by dog, initial encounter; Y93.89 Activity, other specified; Y92.89 Other specified places as the place of occurrence of the external cause; Y99.8 Other external cause status
CPT/HCPCS: 36415; 73060; 80048; 85025; 96361; 96374; 96375; 99291; G0378; J1815; J2405

== ENCOUNTER 2024-12-30 04:50 | Emergency (ER) | payer OTHER, MEDICARE ==
[~2024-12-30] VITALS: Ht 175.3 cm; Wt 85.1 kg
--- NOTE | 2024-12-30 06:49 | ED.PDOC ---
Musculoskeletal HPI Comments 54 y/o M, presents to the ED for CC of lower extremity swelling. Patient states, he had a trip and fall on grass x1week ago and has now developed swelling, pain, and erythema to his left lower leg and foot. Patient further reports, to have a wound between his 1st and 2nd digit of hit left foot. Patient denies fever, ch ills, nausea, or vomiting. No other symptoms or modifying factors are present at this time. Chief Complaint: Wound Check Time Seen by MD: 06:30 Primary Care Provider: [facility] Reviewed Notes: Nurses Notes, Medications, Allergies Allergies: Coded Allergies: No Known Drug Allergy (Verified Allergy, Unknown, 03/07/22) Home Meds Active Scripts Docusate Sodium (Colace) 100 Mg Cap, 1 CAP PO BID, #30 CAP Prov:MARY SANCHEZ SOFTWARE INSTALLER 09/16/23 Acetaminophen W/ Codeine (Tylenol W/Cod #3) 1 Tab Tb, 1 TAB PO Q8HP PRN, #20 TAB Prov:DONNA PURVIS PAC 02/26/23 Cephalexin Monohydrate (Cephalexin) 500 Mg Cap, 1 CAP PO QID for 10 Days, #40 CAP Prov:DONNA PURVIS PAC 02/26/23 Diphenoxylate W/ Atropine (Lomotil) 2.5 Mg Tab, 1 TAB PO QID, #20 TAB Prov:ANASTACIA VENTURA MD 12/27/22 Amoxicillin Trihydrate (Amoxicillin) 500 Mg Tab, 1 TAB PO TID, #30 TAB Prov:SAURAV HICKS SOFTWARE INSTALLER 03/07/22 Mometasone Furoate (Nasal) (Mometasone Furoate) 50 Mcg/Act Spr, 50 MCG NA DAILY for 14 Days, #1 SPRAY Prov:SAURAV HICKS SOFTWARE INSTALLER 03/07/22 Information Source: Patient Mode of Arrival: Ambulatory Location: Left Extremity Location: Foot, Leg Timing: Days Prehospital treatment: None Severity: Moderate Able to Move Extremity: Yes Pain: Moderate Mechanism: Other (fall) Circumstances: Fall Onset of Symptoms: After Trauma Symptoms: Swelling, Erythema DVT Risk Factors: NONE Last Tetanus: Unknown Associated signs and symptoms: Leg pain Past Medical History PAST MEDICAL HISTORY: DM, High Lipids Surgical History: Appendectomy Family History Family History: No family hx of HTN, No family hx ofKisilver zoila, No family hx of Liver zoila, Family hx of Cancer Social History Smoker: Non-Smoker Alcohol: Denies ETOH Use Drugs: Denies Drug Use Lives In: Home Constitutional: denies: chills, diaphoresis, fatigue, fever, malaise, sweats, weakness, others EENTM: denies: blurred vision, double vision, ear bleeding, ear discharge, ear drainage, ear pain, ear ringing, eye pain, eye redness, hearing loss, mouth pain, mouth swelling, nasal discharge, nose bleeding, nose congestion, nose pain, photophobia, tearing, throat pain, throat swelling, voice changes, others Respiratory: denies: cough, hemoptysis, orthopnea, SOB at rest, shortness of breath, SOB with excertion, stridor, wheezing, others Cardiovascular: denies: chest pain, dizzy spells, diaphoresis, Dyspnea on exertion, edema, irregular heart beat, left arm pain, lightheadedness, palpitations, PND, syncope, others Gastrointestinal: denies: abdomen distended, abdominal pain, blood streaked bowels, constipated, diarrhea, dysphagia, difficulty swallowing, hematemesis, melena, nausea, poor appetite, poor fluid intake, rectal bleeding, rectal pain, vomiting, others Genitourinary: denies: burning, dysuria, flank pain, frequency, hematuria, incontinence, penile discharge, penile sore, pain, testicle pain, testicle swelling, urgency, others Neurological: denies: dizziness, fainting, headache, left sided numbness, left sided weakness, numbness, paresthesia, pre-existing deficit, right sided numbne ss, right sided weakness, seizure, speech problems, tingling, tremors, weakness, others Musculoskeletal: reports: others (left-leg swelling, left-foot swelling); denies: back pain, gout, joint pain, joint swelling, muscle pain, muscle stiffness, neck pain Integumetry: denies: bruises, change in color, change in hair/nails, dryness, laceration, lesions, lumps, rash, wounds, others Allergic/Immunocompromised: denies: Difficulty Healing, Frequent Infections, Hives, Itching, others Hematologic/Lymphatic: denies: anemia, blood clots, easy bleeding, easy bruising, swollen glands, others Endocrine: denies: excessive hunger, excessive sweating, excessive thirst, excessive urination, flushing, intolerance to cold, intolerance to heat, unexplained weight gain, unexplained weight loss, others Psychiatric: denies: anxiety, bipolar disorder, depression, hopeless, panic di sorder, schizophrenia, sleepless, suicidal, others All Other Systems: Reviewed and Negative Physical Exam General Appearance: No Apparent Distress, Normal HEENT: Normal ENT Inspection, Pharynx Normal Neck: Full Range of Motion, Non-Tender, Normal, Normal Inspection Respiratory: Chest Non-Tender, Lungs Clear, No Accessory Muscle Use, No Respiratory Distress, Normal Breath Sounds Cardiovascular: No Edema, No Murmur, No Gallop, Normal Peripheral Pulses, Regular Rate/Rhythm Breast Exam: Deferred Gastrointestinal: No Organomegaly, Non Tender, No Pulsatile Mass, Normal Bowel Sounds, Soft Genitalia: Deferred Pelvic: Deferred Rectal: Deferred Extremities: No calf tenderness, Normal capillary refill, Normal inspection, Normal range of motion, Non-tender, No pedal edema Musculoskeletal : Location: Left Extremity Location: Foot, Leg Apperance: Swelling, Other (erythema) Neurologic: Alert, instrumentation technologist II-XII nml as Tested, No Motor Deficits, Normal Affect, Normal Mood, No Sensory Deficits Cerebellar Function: Normal Reflexes: Normal Skin: Dry, Normal Color, Warm Lymphatic: No Adenopathy Was a procedure done? Was a procedure done?: No Differential Diagnosis EXT Differential Diagnosis: Cellulitis, Fracture, Sprain X-Ray, Labs, Meds, VS Vital Signs Date Time Temp Pulse Resp B/P (MAP) Pulse Ox O2 Delivery O2 Flow Rate FiO2 12/30/24 07:56 97.9 102 18 136/83 (100) 98 97.9 12/30/24 07:56 102 18 98 Room Air 12/30/24 04:51 98.2 101 18 118/78 95 98.2 Lab Test 12/30/24 07:22 Range/Units White Blood Count 9.4 4.4-10.8 10^3/uL Red Blood Count 5.25 4.5-5.90 10^6/uL Hemoglobin 14.2 13.5-17.5 g/dL Hematocrit 41.3 41.0-53.0 % Mean Corpuscular Volume 78.7 L 80.0-100.0 fL Mean Corpuscular Hemoglobin 27.0 L 28.0-32.0 pg Mean Corpuscular Hemoglobin Concent 34.4 32.0-36.0 g/dL Red Cell Distribution Width 13.6 11.8-14.3 % Platelet Count 291 140-450 10^3/uL Mean Platelet Volume 8.4 6.9-10.8 fL Neutrophils (%) (Auto) 75.0 37.0-80.0 % Lymphocytes (%) (Auto) 16.2 10.0-50.0 % Monocytes (%) (Auto) 7.4 0.0-12.0 % Eosinophils (%) (Auto) 0.6 0.0-7.0 % Basophils (%) (Auto) 0.8 0.0-2.0 % Neutrophils # (Auto) 7.0 1.6-8.6 10 ^3/uL Lymphocytes # (Auto) 1.5 0.4-5.4 10 ^3/uL Monocytes # (Auto) 0.7 0-1.3 10 ^3/uL Eosinophils # (Auto) 0.1 0-0.8 10 ^3/uL Basophils # (Auto) 0.1 0-0.2 10 ^3/uL Nucleated Red Blood Cells 0.0 % Sodium Level 138 136-145 mmol/L Potassium Level 3.8 3.5-5.1 mmol/L Chloride Level 99 98-107 mmol/L Carbon Dioxide Level 30 20-31 mmol/L Anion Gap 9 5-15 Blood Urea Nitrogen 17 9-23 mg/dL Creatinine 0.99 0.700-1.30 mg/dL Glomerular Filtration Rate Calc 89 >90 mL/min BUN/Creatinine Ratio 17.2 10.0-20.0 Serum Glucose 324 H 74-106 mg/dL Calcium Level 9.4 8.7-10.4 mg/dL Current Medications Medications (Trade) Dose Ordered Sig/Erin Route Start Time Stop Time Status Last Admin Trimethoprim/ Sulfamethoxazole (Bactrim Ds Tablet) 1 tab ONCE ONCE PO 12/30/24 08:30 12/30/24 08:31 DC 12/30/24 08:40 Time of 1ST Reevaluation: 07:00 Reevaluation 1ST: Unchanged Patient Education/Counseling: Diagnosis, Treatment Family Education/Counseling: No Family Present Comments [facility] (Level 5) Medical Decision Making: This is a 54-year-old male with diabetes mellitus type 2 presenting with 1 week of progressive left lower extremity swelling, erythema, warmth, and pain involving the left foot, concerning for cellulitis versus deeper diabetic foot infection. His uncontrolled diabetes and hyperglycemia significantly increase the risk of rapid progression, impaired wound healing, and deeper soft-tissue involvement. Differential diagnosis: cellulitis, abscess, septic arthritis, osteomyelitis, necrotizing soft tissue infection, deep space infection, DVT, gout, and diabetic foot ulceration. Workup: CBC: benign, no leukocytosis. BMP: significant for glucose 324, consistent with uncontrolled diabetes and increasing risk of infection progression. Foot X-ray (ordered and independently interpreted by me): shows soft tissue swelling without gas, no bony destruction, no periosteal reaction, and no radiographic evidence of osteomyelitis or retained foreign body. Vitals stable and patient nontoxic; no hypotension, tachycardia, or other red flags for sepsis. ED Course / Management: Given the marked hyperglycemia, I administered subcutaneous insulin for glucose control to reduce infection-related morbidity and prevent worsening diabetic foot complications. He was also given acetaminophen for pain and Bactrim for antibiotic coverage ta rgeting MRSA-risk cellulitis. Erythema borders were marked and monitored; no rapid progression was observed in the ED. The patient remained hemodynamically stable after treatment, tolerated medications, and maintained adequate perfusion and function of the foot. Risk Assessment: This patient has a high-risk condition (cellulitis in an uncontrolled diabetic) and required high-risk managementincluding insulin administration and prescription antibiotics. A deep soft tissue infection, osteomyelitis, and necro tizing infection were considered. Hospital admission for IV antibiotics and glycemic control was discussed; however, based on reassuring imaging, stable exam, lack of systemic illness, and patients ability to obtain close follow-up, we mutually agreed outpatient management was appropriate. Plan: Discharge with oral Bactrim and strict wound care instructions. Emphasized importance of glycemic control and close follow-up within 2448 hours with PCP or wound care. Strict return precautions for fever, spreading erythema, worsening pain, vomiting, inability to bear weight, streaking redness, or any signs of systemic infection. This evaluation involved extensive data review, independent imaging interpretation, and high-risk medication management, meeting criteria for high- complexity medical decision making. Departure 1 Departure Time of Disposition: 09:22 Impression: Primary Impression: Cellulitis Qualified Codes: L03.116 - Cellulitis of left lower limb Additional Impression: Uncontrolled diabetes mellitus Qualified Codes: E11.65 - Type 2 diabetes mellitus with hyperglycemia Disposition: 01 HOME / SELF CARE / HOMELESS Condition: Stable Additional Instructions: You have cellulitis. This is a skin infection. You were prescribed antibiotics. Please take as directed. You can take tylenol and motrin as needed for pain. It is important that you follow up with your regular doctor within one week to ensure you are doing well. If your symptoms worsen or you have any other concerns then please return to the ER. e-Prescriptions Sulfamethoxazole W/Trimethopri (Bactrim Ds Tablet) 1 Tab Tb 1 TAB PO BID for 7 Days, #14 TAB Prov: BRUNILDA MALLORY MD 12/30/24 Discharged With: Self Critical Care Note Critical Care Time?: No Stability Stability form required: No Heart Score Heart Score: Heart Score Response (Comments) Value History N/A 0 EKG N/A 0 Age N/A 0 Risk Factors N/A 0 Troponin N/A 0 Total 0 I personally scribed for BRUNILDA MALLORY MD ([email or web address]) on 12/30/24 at 06:49. Electronically submitted by Lily Claros [email or web address]). BRUNILDA MALLORY MD Dec 30, 2024 06:49
[2024-12-30 07:32] LABS: Hematocrit 41.3 % (41.0-53.0); Hemoglobin 14.2 g/dL (13.5-17.5); Mean Corpuscular Hemoglobin 27.0 pg (28.0-32.0); Mean Corpuscular Volume 78.7 fL (80.0-100.0); Nucleated Red Blood Cells % 0.0 %
[2024-12-30 07:40] LABS: Chloride 99 mmol/L (98-107); Potassium 3.8 mmol/L (3.5-5.1); Sodium 138 mmol/L (136-145)
[2024-12-30 07:41] LABS: Anion Gap 9 (5-15); Carbon Dioxide 30 mmol/L (20-31)
[2024-12-30 07:42] LABS: Calcium 9.4 mg/dL (8.7-10.4)
[2024-12-30 07:46] LABS: BUN/Creatinine Ratio 17.2 (10.0-20.0); Blood Urea Nitrogen 17 mg/dL (9-23)
[2024-12-30 07:47] LABS: Glucose 324 mg/dL (74-106)
[2024-12-30 07:56] VITALS: BP 136/83; PULSE 102; RESP 18; TEMP 97.9; O2SAT 98
[2024-12-30] MEDS: SULFAMETHOX W/TRIMETH(800/160MG) DS TAB PO ONE (08:40)
--- NOTE | 2024-12-30 09:10 | DVH ---
CLINICAL INDICATION: left foot pain TECHNIQUE: XY L FOOT 2 VIEW XRAY Comparison: None FINDINGS/IMPRESSION: : There is no evidence of acute fracture or dislocation. No bony erosions or lucencies to suggest osteomyelitis Diffuse soft tissue swelling. Diffuse vascular calcifications.
[2024-12-30] MEDS ORDERED: BACDST PO (09:24)
[2024-12-30] MEDS: InsuLIN REG 1unit/0.01ml Soln (100units/ml) SC ONE (09:41)
== END 2024-12-30 09:41 | disposition home or self-care (01) ==
LOC: ER 04:50
DX: L03.116 Cellulitis of left lower limb (principal); E11.65 Type 2 diabetes mellitus with hyperglycemia; Z90.49 Acquired absence of other specified parts of digestive tract; Z79.899 Other long term (current) drug therapy
CPT/HCPCS: 36415; 73620; 80048; 85025